=== PATIENT | female | born 1945 | race African-American/Black ===

== ENCOUNTER 2021-09-09 07:11 | Inpatient (IN) ==
[2021-09-09] MEDS ORDERED: SODIUM CHLORIDE 0.9% 1,000 ML IV STA (07:22)
[2021-09-09] MEDS ORDERED: ONDANSETRON 4 MG/2 ML VIAL IV STA (07:22)
[2021-09-09] MEDS ORDERED: PANTOPRAZOLE 40 MG VIAL IV STA (07:22)
[2021-09-09] MEDS ORDERED: SODIUM CHLORIDE 0.9% 1,000 ML IV PRN (07:31)
[2021-09-09 07:42] LABS: Basophils % 0.4 % (0.0-0.8); Eosinophils # 0.1 10*3/uL (0.0-0.87); Eosinophils % 1.6 % (0.00-10.9); Hematocrit 37.6 VOL% (35.7-47.0); Hemoglobin 11.7 GM/DL (12.0-16.0); Immature Granulocytes % 0.4 %; Immature Granulocytes Absolute 0.03 #; Lymphocytes # 3.7 10*3/uL (1.4-4.0); Lymphocytes % 43.6 % (21.3-54.2); Mean Corpuscular HGB Conc 31.1 GM/DL (32-36); Mean Corpuscular Volume 81.4 FL (87-102); Mean Platelet Volume 10.4 FL (9.6-12.0); Monocytes % 8.4 % (1.7-12.7); Neutrophils % 45.6 % (38.7-73.9); Platelet Count 195 T/CUMM (130-400); Red Blood Count 4.62 MC/CUMM (3.8-5.5); Red Cell Distribution Width 15.7 % (9.3-17.3); White Blood Count 8.6 T/CUMM (4-12)
[2021-09-09 08:01] LABS: INR 1.1; PT Patient Result 12.3 SECS (10.5-12.0); Partial Thromboplastin Time 26.5 SECS (23.8-32.1)
[2021-09-09 08:03] LABS: Albumin 3.2 G/DL (3.4-5.0); Bilirubin,Total 0.4 MG/DL (0.20-1.00); Calcium 8.8 MG/DL (8.5-10.1); Osmolality,Calculated 289.4 MOS/KG (273-304); Potassium 3.5 MMOL/L (3.5-5.1); Total Protein 6.7 G/DL (6.4-8.2)
[2021-09-09] MEDS ORDERED: GLUCAGON 1 MG VIAL IM PRN (10:25)
[2021-09-09] MEDS ORDERED: DEXTROSE 10% 25 GM/250 ML BAG IV PRN (10:25)
[2021-09-09] MEDS ORDERED: ONDANSETRON 4 MG/2 ML VIAL IV PRN (10:25)
[2021-09-09] MEDS ORDERED: ACETAMINOPHEN 325 MG TABLET PO PRN (10:25)
[2021-09-09] MEDS: SODIUM CHLORIDE 0.9% 1,000 ML IV SCH (13:25)
[2021-09-09] MEDS: PIPERACILLIN/TAZOBACTAM 3,375 MG in SODIUM CHLORIDE 0.9% 100 ML IV SCH ×2 (13:26→18:28)
[2021-09-09 13:45] LABS: Hematocrit 41.5 VOL% (35.7-47.0); Hemoglobin 13.1 GM/DL (12.0-16.0)
[2021-09-09 16:52] LABS: Hematocrit 41.6 VOL% (35.7-47.0); Hemoglobin 13.1 GM/DL (12.0-16.0)
[2021-09-09] MEDS: PANTOPRAZOLE 40 MG VIAL IV SCH (21:06)
[2021-09-09 22:57] LABS: Hematocrit 37.2 VOL% (35.7-47.0); Hemoglobin 11.7 GM/DL (12.0-16.0)
[2021-09-10] MEDS: PIPERACILLIN/TAZOBACTAM 3,375 MG in SODIUM CHLORIDE 0.9% 100 ML IV SCH ×2 (03:53→10:39)
[2021-09-10 05:22] LABS: Basophils % 0.2 % (0.0-0.8); Eosinophils # 0.2 10*3/uL (0.0-0.87); Eosinophils % 2.2 % (0.00-10.9); Hematocrit 40.7 VOL% (35.7-47.0); Hemoglobin 12.8 GM/DL (12.0-16.0); Immature Granulocytes % 0.2 %; Immature Granulocytes Absolute 0.02 #; Lymphocytes # 2.6 10*3/uL (1.4-4.0); Lymphocytes % 28.8 % (21.3-54.2); Mean Corpuscular HGB Conc 31.4 GM/DL (32-36); Mean Corpuscular Volume 84.3 FL (87-102); Mean Platelet Volume 10.3 FL (9.6-12.0); Monocytes % 7.1 % (1.7-12.7); Neutrophils % 61.5 % (38.7-73.9); Platelet Count 160 T/CUMM (130-400); Red Blood Count 4.83 MC/CUMM (3.8-5.5); White Blood Count 9.2 T/CUMM (4-12)
[2021-09-10 05:59] LABS: Bilirubin,Total 0.8 MG/DL (0.20-1.00); Calcium 8.3 MG/DL (8.5-10.1); Osmolality,Calculated 283.3 MOS/KG (273-304); Potassium 3.4 MMOL/L (3.5-5.1); Total Protein 6.3 G/DL (6.4-8.2)
[2021-09-10] MEDS: SODIUM CHLORIDE 0.9% 1,000 ML IV SCH (06:12)
[2021-09-10] MEDS: PANTOPRAZOLE 40 MG VIAL IV SCH (10:41)
[2021-09-10 14:45] LABS: Hematocrit 35.3 VOL% (35.7-47.0); Hemoglobin 11.2 GM/DL (12.0-16.0)
[2021-09-10 16:08] VITALS: BP 145/90
== END 2021-09-10 17:53 | disposition home or self-care (01) | DRG 379 ==
LOC: EDUNIT# → EDBD → N.ED 07:11 → SUATTDRO 10:25 → N.EDINP 10:25 → N.TELEN 09-10 02:22
PROVIDERS: ADMIT Internal Medicine; ATTEND Internal Medicine